=== PATIENT | female | born 1990 | race Hispanic/Latino ===

== ENCOUNTER 2021-01-07 21:55 | Emergency (ER) | payer SELFPAY ==
[2021-01-07] MEDS ORDERED: SODIUM CHLORIDE 0.9% 1000ML 1,000 ML IV STA (22:33)
[2021-01-07] MEDS ORDERED: LORAZEPAM INJ 2 MG/ML VIAL IV ONE (22:45)
[2021-01-07] MEDS ORDERED: POTASSIUM CHLORIDE 20 MEQ TAB CR PO STA (23:02)
[2021-01-07] MEDS ORDERED: POTASSIUM CHLORIDE 20 MEQ TAB CR PO ONE (23:20)
[2021-01-07] MEDS ORDERED: SODIUM CHLORIDE 0.9% 1000ML 1,000 ML ONE (23:21)
[2021-01-07] MEDS ORDERED: LORAZEPAM INJ 2 MG/ML VIAL ONE (23:21)
[2021-01-08 01:13] VITALS: BP 120/70
[2021-01-08 01:23] LABS: AMPHETAMINES SCREEN,URINE NEGATIVE (NEGATIVE); BENZODIAZEPINES SCREEN,URINE NEGATIVE (NEGATIVE); PHENCYCLIDINE SCREEN,URINE NEGATIVE (NEGATIVE)
[2021-01-08] MEDS ORDERED: HYDROXYZINE PAM25 MG PO (21:38)
[2021-01-08] MEDS ORDERED: ONDANSETRON ODT4 MG PO (21:38)
== END 2021-01-08 01:13 | disposition home or self-care (01) ==
LOC: FSED 22:25
DX: R00.2 Palpitations (principal); F41.9 Anxiety disorder, unspecified; F12.10 Cannabis abuse, uncomplicated; E86.0 Dehydration
CPT/HCPCS: 80053; 80307 ×2; 81003; 81025; 85025; 85379; 93005; 96374; 99283; J2060; J7030

== ENCOUNTER 2021-01-08 20:00 | Emergency (ER) | payer SELFPAY ==
[~2021-01-08] VITALS: Ht 154.9 cm; Wt 59.0 kg
[2021-01-08] MEDS ORDERED: ONDANSETRON HCL 4 MG ORAL DISINTEGRATING TAB PO ONE (20:45)
[2021-01-08] MEDS ORDERED: ONDANSETRON HCL 4 MG ORAL DISINTEGRATING TAB ONE (21:14)
[2021-01-08] MEDS ORDERED: ONDANSETRON ODT4 MG PO (21:38)
[2021-01-08] MEDS ORDERED: HYDROXYZINE PAM25 MG PO (21:38)
[2021-01-08 21:54] VITALS: BP 134/67
== END 2021-01-08 21:54 | disposition home or self-care (01) ==
LOC: FSED 20:10
DX: R06.02 Shortness of breath (principal); F12.929 Cannabis use, unspecified with intoxication, unspecified; F41.9 Anxiety disorder, unspecified
CPT/HCPCS: 71045; 99283; Q0162

== ENCOUNTER 2022-07-09 15:42 | Emergency (ER) | payer OTHER ==
[~2022-07-09] VITALS: Ht 154.9 cm; Wt 56.7 kg
[~2022-07-09 15:42] MED LIST: HYDROXYZINE PAM25 MG PO; ONDANSETRON ODT4 MG PO
[2022-07-09] MEDS ORDERED: HYDROXYZINE HCL25 MG PO (18:19)
[2022-07-09 18:32] VITALS: BP 121/76; PULSE 65; RESP 17; O2SAT 98
== END 2022-07-09 18:34 | disposition home or self-care (01) ==
LOC: FSED 15:50
DX: R00.2 Palpitations (principal); I47.1 Supraventricular tachycardia; D64.9 Anemia, unspecified; F41.0 Panic disorder [episodic paroxysmal anxiety]
CPT/HCPCS: 80053; 81003; 81025; 82553; 84484; 85025; 93005; 99283